=== PATIENT | female | born 1955 | race Caucasian/White ===

== ENCOUNTER 2016-10-15 14:26 | Inpatient (IN) | payer OTHER ==
[~2016-10-15] VITALS: Ht 166.4 cm; Wt 88.4 kg
--- NOTE | ~2016-10-15 | CON ---
PATIENT'S NAME: PAT LEWIS [facility] AGE: 61 Y [address] ROOM: [place] [id number] LOCATION: GPCU ADMIT DATE: 10/15/2016 Consultation DISCHARGE DATE: FAMILY PHYSICIAN: PHYSICIAN, UNKNOWN ATTENDING PHYSICIAN: WHITNEY DELUCA DATE OF CONSULTATION: 10/17/2016 REFERRING PHYSICIAN: Emre Hoffman MD REASON FOR CONSULT: Abnormal liver function tests. HISTORY OF PRESENT ILLNESS: Pat Lewis is a very pleasant 61-year-old female, who was admitted yesterday with history of a substernal chest pain, abdominal pain, and was found to have a borderline elevated ALT on admission. She underwent a cardiology consult, workup, echocardiogram as well as CT angio, which was negative. Her liver function tests shot up this morning with a total bilirubin up to 3.5, ALT 506, AST 222. An abdominal ultrasound was obtained, which revealed a common bile duct of 6 mm without any gallbladder stones and no evidence of cholecystitis and no pancreatic abnormality. I was asked to see her in regard to elevated liver function tests in association with underlying abdominal pain and constipation. The patient denies any previous similar episodes and is presently complaining of abdominal discomfort and "excessive burping." She was allowed to eat, which caused her pain to worsen this afternoon. PAST MEDICAL HISTORY: Otherwise unremarkable. Does have ongoing problem with acid reflux but does not take any medications. PAST SURGICAL HISTORY: None. MEDICATIONS: On admission, none. MAR is reviewed. FAMILY HISTORY: "Heart disease." REVIEW OF SYSTEMS: A 10-point review of system otherwise negative. PHYSICAL EXAMINATION: PATIENT'S NAME: PAT LEWIS [facility] AGE: 61 Y [address] ROOM: [id number] [place] [id number] LOCATION: GPCU ADMIT DATE: 10/15/2016 Consultation DISCHARGE DATE: FAMILY PHYSICIAN: PHYSICIAN, UNKNOWN ATTENDING PHYSICIAN: WHITNEY DELUCA GENERAL: A middle-aged female, in mild distress in view of ongoing burping and abdominal discomfort. HEENT: Atraumatic, normocephalic. Pupils round and reactive. Nonicteric sclerae. NECK: Supple. No palpable nodes. CHEST: Clear to auscultation. HEART: S1, S2 normal. ABDOMEN: Soft and nondistended with right upper quadrant tenderness. No rebound. Bowel sounds are present. EXTREMITIES: No edema. Pulses palpable. NEUROLOGIC: Awake, alert, and appropriate without any focal deficits. LABORATORY DATA: CBC reveals a white cell count of 7.2. Chemistry panel showing total bilirubin of 3.5, AST 222, ALT 506. Abdominal ultrasound showing no biliary dilatation. Common bile duct measured at 6 mm. No focal liver lesions and no gallstones. Normal ultrasound appearance of the pancreas without any enlargement. ASSESSMENT AND PLAN: A 61-year-old female presenting with abdominal/substernal chest pain with cardiopulmonary workup being negative, abdominal ultrasound is negative, however, the findings strongly suggest a biliary etiology in association with underlying constipation. She also has symptoms of acid reflux with no previous upper or lower GI endoscopic evaluation. We will trend her liver panel, and obtain an MRCP to look at the gallbladder and bile ducts with further evaluation, which may require an ERCP as well as consideration of upper and lower GI endoscopy in view of symptoms noted above. Further recommendations pending this evaluation. Thank you for this consult. MER FREEMAN MD AM/mimi /[id number] d: 10/18/16 0032 t: 10/18/16 0811, CONSULTATION REPORT
--- NOTE | ~2016-10-15 | DS ---
PATIENT'S NAME: CHAPARRO LEWIS [facility] AGE: 61 Y [address] ROOM: [id number] [place], [place] [address] LOCATION: GPCU ADMIT DATE: 10/15/2016 Discharge Summary DISCHARGE DATE: 10/21/2016 FAMILY PHYSICIAN: Nikos White MD ATTENDING PHYSICIAN: Amadeo Sotelo FINAL DIAGNOSES: 1. Chest pain, noncardiac. 2. Abdominal pain secondary to acute diverticulitis, left colon. 3. Elevated liver function tests, etiology determined. HOSPITAL COURSE: This 61-year-old female was admitted to the hospitalist service for the above. I was asked to see her the last couple days of her admission. When I saw her a couple days prior to admission, she had just gone on IV anesthesia for colonoscopy which revealed pus coming from the diverticulum on the left colon per Dr. Trinidad, manager winter. At that time, after her endoscopy of the colon, it was elected to place her on IV Cipro and IV Flagyl. I felt because of the type of infection and the amount of infection, it was appropriate to keep her on IV antibiotics at that time. Her liver functions have been the other issue here and although her cardiac status has been ruled out as a cause of her pain, her liver function elevation is concerning enough that the manager winter wanted to have me see her back on Monday and recheck her liver function tests, and if these do not continue to resolve, she will need further GI evaluation either at [facility], nor the [facility]. The patient understands this. On the morning, when I see her dismissal 10/21, she has tolerated the IV Cipro and IV Flagyl well. She has been told to proceed to take these as an outpatient and not drink alcohol. She has been told to see me back in the office this coming Monday. At that time, we will check liver function tests, obtain consultation with the manager winter as needed. At home, she can have diet as tolerated, activity as tolerated. I gave her a note to be out-of- work for a week. NIKOS WHITE MD RACE ENGINE BUILDER/modl /[id number] d: 10/22/16 0121 t: 10/24/16 1832, DISCHARGE SUMMARY
--- NOTE | ~2016-10-15 | ER ---
PATIENT'S NAME: CHAPARRO LEWIS [facility] AGE: 61 Y [address] ROOM: [place] [address] LOCATION: GPCU ADMIT DATE: 10/15/2016 ER/Outpatient Report DISCHARGE DATE: FAMILY PHYSICIAN: PHYSICIAN, UNKNOWN ATTENDING PHYSICIAN: WHITNEY DELUCA CHIEF COMPLAINT: Chest pain. HISTORY OF PRESENT ILLNESS: The patient arrives by ambulance from [place]. She was at her work today at a [employer] when she had an episode of crushing sternal and substernal chest pain associated with diaphoresis that was self-limited. She received aspirin and nitroglycerin. The nitroglycerin did not help, but she is almost completely asymptomatic by arrival here in the emergency department. She has been having these episodes off and on for the last several weeks. Typically, they start in the mid abdomen and radiate upwards and are more consistent with some reflux disease. She does not have a primary care physician. She does not go to doctor. She does not take medicine, but thinks she may have high blood pressure. She has extensive family cardiac history, but denies being a smoker. PAST MEDICAL HISTORY: Documented on the record and reviewed by me. SOCIAL HISTORY: Documented on the record and reviewed by me. MEDICATIONS: Documented on the record and reviewed by me. ALLERGIES: DOCUMENTED ON THE RECORD AND REVIEWED BY ME. REVIEW OF SYSTEMS: All systems were reviewed and negative except as noted in the HPI. PHYSICAL EXAMINATION: VITAL SIGNS: Blood pressure 174/82, pulse 61, respiratory rate 16, temperature 97.7, and SpO2 is 96% on room air. GENERAL: Age-appropriate female, in no obvious pain or distress, resting comfortably on the exam table. NEUROLOGIC: Awake and alert. GCS is 15. No focal deficits. HEENT: Normocephalic, atraumatic. Eyes are PERRL. Oropharynx is clear. NECK: Supple. Trachea is midline. PATIENT'S NAME: CHAPARRO LEWIS [facility] AGE: 61 Y [address] ROOM: [address] [address] LOCATION: GPCU ADMIT DATE: 10/15/2016 ER/Outpatient Report DISCHARGE DATE: FAMILY PHYSICIAN: PHYSICIAN, UNKNOWN ATTENDING PHYSICIAN: WHITNEY DELUCA CHEST/HEART: Regular rate and rhythm with no murmurs. LUNGS: Clear to auscultation bilaterally with no rhonchi, wheezes, or rales. ABDOMEN: Soft, nontender, nondistended. Bowel sounds are present throughout. No masses or megaly appreciated. BACK: Nontender to palpation. No CVA tenderness. EXTREMITIES: Warm and well perfused. No evidence of DVT. No erythema. No edema. SKIN: Warm, dry, and intact. No diaphoresis at this time. LABORATORY DATA AND X-RAYS: Chest x-ray without abnormality per my read. Chest CT with no abnormalities according to Radiology. Labs: WBC 7.2, hemoglobin 13.0, platelets 164. INR is 1.0. Sodium 144, potassium 4.0, chloride 110, CO2 is 26, BUN is 14, creatinine is 0.8, GFR is greater than 60. LFTs grossly unremarkable other than an AST of 101, ALT of 70. Magnesium 2.2. CPK is 130, CK-MB is 2.5, troponin is below threshold. D-dimer 0.55. Repeat cardiac enzymes: CPK 151, CK-MB 2.3, troponin I remains below threshold. EKG: Initial reveals sinus rhythm, ventricular rate of 60 with QTc of 54, otherwise normal intervals and axis. Some artifact is appreciated in the inferior leads with [id number] variation, but no obvious signs of ischemia. No ST-segment elevation or depression. Repeat EKG is unchanged compared to initial with no other available comparisons. IMPRESSION: 1. Chest pain, not otherwise specified, possible hypertensive urgency 2. Uncontrolled hypertension. 3. Elevated AST with undetermined etiology. EMERGENCY DEPARTMENT COURSE: The patient was evaluated as noted above. She was found to be asymptomatic. PE was considered in the differential based on her presentation. D-dimer was elevated as the patient was low risk by [place] but not PERC negative based on age. At that time, a CT chest was obtained. She was pretreated with Benadryl to prevent allergy as she supposedly has a reaction to strawberries with hives and Radiology was concerned about that. She had no adverse reactions. Over the course of time in the emergency department, her blood pressure began to trend up significantly. Ultimately, I believe that she will need to be admitted for evaluation and treatment of her recurrent chest pain in the setting of what appears to be uncontrolled hypertension and possible hypertensive urgency. Dr. Mir received hand off at 1800 hours and will help facilitate admission. Initially, I was planning on discharging her, but with her up trending blood pressures, I do not think that it would be safe. Please see his dictation for completion of encounter. PATIENT'S NAME: CHAPARRO LEWIS [facility] AGE: 61 Y [address] ROOM: [place] [address] [facility]ATION[facility] ADMIT DATE: 10/15/2016 ER/Outpatient Report DISCHARGE DATE: FAMILY PHYSICIAN: PHYSICIAN, UNKNOWN ATTENDING PHYSICIAN: WHITNEY DELUCA MD YIN PHILLIP/mimi /[id number] d: 10/16/1607 t: 10/18/16 0633, OUTPATIENT REPORT
--- NOTE | ~2016-10-15 | ECHO ---
Transthoracic Echocardiography Report (TTE) Demographics Patient Name CHAPARRO LEWIS Date of Study 10/16/2016 Patient Number [id number] Visit Number [id number] Date of 1955 Room Number G6325 Accession Number [id number] Gender Female Age 61 year(s) Referring Ashleigh Boswell MD Railway Yard Assistant Kacie Neal RVT Physician Physician Interpreting Eli Gregorio Trade Mark Examiner Physician Supervising Ordering Physician Ashleigh Boswell MD, MD/MLP Nurse Stress Radiologist Physician Conclusions Contractility Score Summary Normal Left Ventricular contractility was noted. Summary Normal LV/RV size and systolic function. The estimated left ventricular ejection fraction is 55-60%. Mild concentric left ventricular hypertrophy. Diastolic assessment reveals normal LV relaxation. No significant valvular abnormalities. Procedure Type of Study TTE procedure:2D Echocardiogram, M-Mode, Doppler , Color Doppler. Procedure Date Date: 10/16/2016 Start: 04:10 PM Study Location: Inpatient Portable Technical Quality: Adequate visualization Indications:Chest pain. Appropriate Use Criteria: 9 Patient Status: Routine HR: 52 bpm BP: 154/72 mmHg M-Mode/2D Measurements LV Diastolic Dimension: 4.63 cm LV Systolic Dimension: 2.72 cm LV Septum Diastolic: 1.45 cm LV PW Diastolic: 1.3 cm AO Root Dimension: 2.4 cm Cardiac Output: 2.79 l/min AV Cusp Separation: 1.9 cm RV Diastolic Dimension: 3.43 cm LVOT: 2 cm LVOT VTI: 17.1 cm RV Base: 2.46 cm LV Stroke volume: 53.69 ml RV Length: 6.23 cm TAPSE: 2.38 cm TDI-S': 18.4 cm/s Doppler Measurements AV Peak Velocity: 1.97 m/s MV Peak E-Wave: 1.04 m/s AV Peak Gradient: 15.52 mmHg MV Peak A-Wave: 0.74 m/s AV Mean Gradient: 7 mmHg MV E/A Ratio: 1.41 LVOT Peak Velocity: 0.71 m/s MV P1/2t: 62 msec PV Peak Velocity: 0.97 m/s E' Septal Velocity: 0.07 m/s PV Peak Gradient: 3.74 mmHg E' Lateral Velocity: 0.12 m/s A' Septal Velocity: 0.16 m/s A' Lateral Velocity: 0.14 m/s Findings Left Ventricle Mild concentric left ventricular hypertrophy. Diastolic assessment reveals normal relaxation. Right Ventricle Normal right ventricle structure and function. Left Atrium Normal left atrial size. Right Atrium IVC measures 1.69 cm with inspiratory collapse. Mitral Valve Trivial mitral regurgitation by color Doppler. Aortic Valve The aortic valve is mildly sclerotic. Tricuspid Valve Normal tricuspid valve structure and function. Pulmonic Valve Normal pulmonic valve structure and function. Pericardial Effusion No evidence of pericardial effusion. Miscellaneous Visualized portions of the aortic root and ascending aorta appear normal in size. Pleural Effusion No evidence of pleural effusion. Contractility Score LV regional wall motion:(0-Non visualized 1-Normal 2-Hypokinesis 3-Akinesis 4-Dyskinesis 5-Aneurysm) Signature dtt: TERI HARKINS dtd: 10/16/16 5210 Physician Self Edit
--- NOTE | ~2016-10-15 | CON ---
PATIENT'S NAME: CHAPARRO LEWIS [facility] AGE: 61 Y [address] ROOM: [id number] [place] [address] LOCATION: GPCU ADMIT DATE: 10/15/2016 Consultation DISCHARGE DATE: FAMILY PHYSICIAN: PHYSICIAN, UNKNOWN ATTENDING PHYSICIAN: WIHTNEY DELUCA DATE OF CONSULTATION: 10/16/2016 REFERRING PHYSICIAN: Emre Hoffman MD REASON FOR CONSULT: Chest pain. HISTORY OF PRESENTING ILLNESS: The patient is a very pleasant, 61-year-old female, who arrived to the emergency room via ambulance from [place]. 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 She does not report that she has any chest pain, tightness, pressure, heaviness, jaw pain, arm pain with exertion in the recent past. She also reports the nitroglycerin did not help. She did receive Gas-X and that helped a little bit and she also got the GI cocktail and says that has helped her. When she came in, her pain was about 7 on the pain scale, and this morning she is still continues to have abdominal pain and it is about 5 on pain scale. She does not have a primary care doctor and does not get her labs checked. She does not take any medications, but she does report that she thinks she has high blood pressure in the past. She also has extensive family history of premature coronary artery disease. She does not smoke, no illicit drug abuse. She does not have any PND, orthopnea, lower extremity edema. She denies any neurological symptoms. She does not have any recent skin rashes. No travel outside the country. No cough or sputum production. Review of systems: 10 point review of systems discussed with patient and pertinent. PAST MEDICAL HISTORY: Questionable hypertension. 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 She also reports no history of alcohol or illicit drug abuse or tobacco abuse. She chews tobacco 1 can a week. MEDICATIONS: Please see MAR. ALLERGIES: IODINE. PATIENT'S NAME: CHAPARRO LEWIS [facility] AGE: 61 Y [address] ROOM: [address] [address] LOCATION: GPCU ADMIT DATE: 10/15/2016 Consultation DISCHARGE DATE: FAMILY PHYSICIAN: PHYSICIAN, UNKNOWN ATTENDING PHYSICIAN: WHITNEY DELUCA MEDICATIONS: None. PAST SURGICAL HISTORY: None reported by the patient. FAMILY HISTORY: Positive for premature coronary artery disease in her father, who has had MIs starting at the age of 40. PHYSICAL EXAMINATION: VITAL SIGNS: Afebrile, pulse is 52 and regular, respirations 14, blood pressure 152/71, and saturations 96% on room air. GENERAL: The patient is alert and oriented to time, place, and person. She appears to be in mild distress due to her abdominal pain. She answers questions appropriately. HEENT: Head is normocephalic, atraumatic. Extraocular muscles are intact. Mucous membranes moist. NECK: Supple. HEART: S1 and S2. Regular rate and rhythm. Distant heart sounds. LUNGS: Clear to auscultation bilaterally. ABDOMEN: Soft. Tender to palpation. Nondistended. Obese. Bowel sounds are present. No rebound or guarding. EXTREMITIES: No lower extremity edema. NEUROLOGIC: Grossly intact. Able to move all extremities against gravity. LABORATORY DATA: Her sodium is 143, potassium 3.9, chloride 109, CO2 24, glucose 103, BUN 10, creatinine 0.9, total bilirubin 0.6, alkaline phosphatase 76. AST 101, ALT 70. GFR greater than 60. Magnesium 2.2. Total cholesterol 168, triglycerides 101, HDL 53, VLDL 20, LDL is 95. CPK x3 within normal limits less than 155, CK-MB within normal limits less than 2.5. Troponin 3 sets less than 0.04. H and H are 13 and 37.9. Platelets are 164. She had a CAT scan PE protocol, yesterday and basically there is no evidence of any PE, no vascular congestion or acute parenchymal infiltrate. She does have a small sliding hiatal hernia on the CAT scan. EKG normal sinus rhythm without any ST changes suggestive of ischemia or injury. IMPRESSION AND PLAN: 1. Hypertensive urgency. 2. Elevated AST along with abdominal pain. 3. Atypical chest discomfort from abdominal pain as well as gas that feels PATIENT'S NAME: JOSHUA CHAPARRO L [facility] AGE: 61 Y [address] ROOM: [address] [place], [place] [address] [facility] ADMIT DATE: 10/15/2016 Consultation DISCHARGE DATE: FAMILY PHYSICIAN: PHYSICIAN, UNKNOWN ATTENDING PHYSICIAN: WHITNEY DELUCA like it is pushing her belly up into her chest and she has some chest discomfort for that, no clear-cut exertional symptoms, no symptoms prior to Monday this admission. 4. Sinus bradycardia, since beta-errol has been started here. The patient was admitted with hypertensive urgency in setting of abdominal pain as well as elevated AST. Her chest discomfort is very atypical and this seems to be coming from her abdomen pushing into her chest. Serial ECGs as well as 3 sets of cardiac isoenzymes are essentially unremarkable. It is very unlikely that she is having acute coronary syndrome or angina equivalent, given the findings of serial cardiac workup so far. In any case, given her hypertensive urgency poorly controlled blood pressure, it is very important to check an echocardiogram to see if she has any hypertensive heart disease on echo to evaluate her LV systolic function, left atrial size, and diastolic function. I will discontinue the beta-errol given her sinus bradycardia and I will start amlodipine 2.5 mg daily 1st dose today. I will also increase her Vasotec to 10 mg p.o. daily. Since she has cardiovascular risk factors, it is reasonable for her to be on aspirin for primary prophylaxis. We will decrease the dose to 81 mg p.o. daily. Since her lipid profile is fairly adequate, I do not think we need to start a statin at this time. Her [place] risk score is low and only 2.8%. I will discontinue the Lipitor, reiterated the importance of cardiac diet and exercise and lifestyle modification. Also, reiterated the importance of continuing follow up and getting blood pressure medications and making sure it is well controlled to avoid long-term cardiovascular effects. If there is anything abnormal on the echocardiogram, we will then proceed with stress test. Otherwise, I think at this time we need to just control her cardiovascular risk factors very well and lifestyle modification. Thank you very much, Dr. Deluca for allowing us to participate in the care of Mrs. Lewis. We will continue to follow her. MD ZULAY DIXON/modl /[id number] d: 10/16/16 1107 t: 10/17/16 0913, CONSULTATION REPORT
--- NOTE | ~2016-10-15 | ER ---
PATIENT'S NAME: CHAPARRO LEWIS [facility] AGE: 61 Y [address] ROOM: [place] [address] LOCATION: GPCU ADMIT DATE: 10/15/2016 ER/Outpatient Report DISCHARGE DATE: 10/21/2016 FAMILY PHYSICIAN: Nikos White MD ATTENDING PHYSICIAN: Nikos White Time of Arrival: 1426 hours. Time of Evaluation: The patient was seen at 1440 hours. CHIEF COMPLAINT: This is a 61-year-old female, previously reasonably healthy. She is in with complaint of epigastric pain and diaphoresis. HISTORY OF PRESENT ILLNESS: At about 1230 hours this afternoon, she developed bloating and discomfort in her epigastrium that became progressively more severe and she states that she burped several times with partial relief, and the discomfort continued to worsen. She became diaphoretic and so she presented herself here. PAST MEDICAL HISTORY: She denies any chronic medical problems. MEDICATIONS: None. REVIEW OF SYSTEMS: Otherwise, negative. SOCIAL HISTORY: She is a nonsmoker. She does chew tobacco. She denies alcohol. FAMILY HISTORY: Significant for coronary artery disease in both of her parents. REVIEW OF SYSTEMS: She denies any other recent illnesses. All other systems are negative. PHYSICAL EXAMINATION: GENERAL: An alert, cooperative female. Moderately overweight, in no acute distress. VITAL SIGNS: Stable. SKIN: Warm and damp. Color is pale. HEAD, EARS, EYES, NOSE, THROAT: Normal. NECK: Supple. HEART: Normal. PATIENT'S NAME: CHAPARRO LEWIS [facility] AGE: 61 Y [address] ROOM: [place] [address] LOCATION: GPCU ADMIT DATE: 10/15/2016 ER/Outpatient Report DISCHARGE DATE: 10/21/2016 FAMILY PHYSICIAN: Nikos White MD ATTENDING PHYSICIAN: Nikos White LUNGS: Normal. ABDOMEN: Soft. She has minimal epigastric tenderness. No guarding or rebound tenderness. EXTREMITIES: Normal. NEUROLOGIC: Normal. LABORATORY DATA: EKG revealed sinus rhythm with no acute ST or T-wave changes. Cardiac enzymes were negative. Chest x-ray was negative. EMERGENCY DEPARTMENT COURSE: The patient was given sublingual nitroglycerin with improvement in her discomfort, and the hospitalist was called and agreed to admit the patient. ASSESSMENT: Epigastric pain/chest pain. PLAN: Admit for serial cardiac enzymes and cardiac stress test. KAIN MAGAÑA MD JDB/modl /[id number] P d: 11/14/16 1518 t: 12/13/16 1021, OUTPATIENT REPORT
--- NOTE | ~2016-10-15 | HP ---
PATIENT'S NAME: CHAPARRO LEWIS [facility] AGE: 61 Y [address] ROOM: [place] [address] LOCATION: GPCU ADMIT DATE: 10/15/2016 History & Physical DISCHARGE DATE: FAMILY PHYSICIAN: PHYSICIAN, UNKNOWN ATTENDING PHYSICIAN: WHITNEY DELUCA DATE OF SERVICE: PRIMARY CARE PHYSICIAN: None. CHIEF COMPLAINT: Epigastric pain. HISTORY OF PRESENT ILLNESS: This is a 61-year-old female with a family history of heart disease. The patient states that she started having bloating in her abdomen sometime early this afternoon. She then started developing epigastric pain. The patient rated her pain as 6/10 in intensity. She presented to the ER with epigastric pain at that point of time. She states that she was also diaphoretic. The pain radiates to her back. She received a dose of aspirin and nitroglycerin in the ER, and her pain resolved. Currently, she rates her pain as 3/10 intensity. She denies any lightheadedness. She was diaphoretic during this episode. Denies any abdominal pain currently. Denies back pain or knee pain issues. Denies any other complaints at this point in time. REVIEW OF SYSTEMS: A 10-point review of systems was done and was otherwise negative, except as mentioned above. PAST MEDICAL HISTORY: None reported. PAST SURGICAL HISTORY: None reported. ALLERGIES: IODINE. HOME MEDICATIONS: None. SOCIAL HISTORY: Denies smoking or alcohol use. PATIENT'S NAME: CHAPARRO LEWIS [facility] AGE: 61 Y [address] ROOM: [place] [address] LOCATION: GPCU ADMIT DATE: 10/15/2016 History & Physical DISCHARGE DATE: FAMILY PHYSICIAN: PHYSICIAN, UNKNOWN ATTENDING PHYSICIAN: WHITNEY DELUCA FAMILY HISTORY: Significant for heart disease in mother and father. PHYSICAL EXAMINATION: VITAL SIGNS: Temperature 97.7; pulse 65, regular; respirations 16; blood pressure 174/82; saturation 96% on room air. GENERAL: The patient is alert and oriented x3. Answers all questions appropriately. No acute distress. HEENT: Head: Normocephalic, atraumatic. Pupils are equal, round, and reactive to light. Extraocular muscles are intact. Nares clear. Throat clear. Mucous membranes moist. NECK: Supple. No nuchal rigidity. HEART: Regular rate and rhythm. LUNGS: Clear to auscultation bilaterally. ABDOMEN: Soft, nontender, and nondistended. Bowel sounds are present. EXTREMITIES: No clubbing, cyanosis, or edema. VASCULAR: Pulses are 2+ distally bilaterally. NEUROLOGIC: The patient is alert and oriented x3. Follows all commands. Moves all extremities. Cranial nerves 2 through 12 grossly intact. Deep tendon reflexes are 2+/4. Sensation intact in bilateral upper and lower extremities. DIAGNOSTIC STUDIES: CPK 151 and 130. Troponin I less than 0.04 x2. CBC showed a white count of 7.2, hemoglobin 13.2, hematocrit 37.9, platelets 164. CMP showed sodium 144, potassium 4.0, chloride 110, bicarb 26, BUN 14, creatinine 0.8, glucose 117, calcium 8.6, total protein 6.8, albumin 3.9, AST 101, ALT 70, alkaline phosphatase 76, total bilirubin 0.6, magnesium 2.2, anion gap 12.0, globulin 2.9, GFR more than 60, PT 10.2, INR 1.0, PTT 27, CK- MB 2.5 and subsequently 2.3. D-dimer 0.55. CT chest PE protocol was done and it showed no PE. No vascular congestion or acute parenchymal infiltrate noted. Small sliding hiatal hernia was detected. Chest x-ray was done in the ER and showed no vascular congestion or acute parenchymal infiltrate. Metallic hardware at the left clavicle was noted. EKG done in the ER showed sinus rhythm with no acute ST changes and rate of 64 beats per minute. QT interval prolonged with QTc corrected 451 milliseconds. ASSESSMENT AND PLAN: A 61-year-old female presenting with chest pain to rule out acute coronary syndrome and hypertensive urgency. PATIENT'S NAME: CHAPARRO LEWIS [facility] AGE: 61 Y [address] ROOM: [place] [address] [facility] ADMIT DATE: 10/15/2016 History & Physical DISCHARGE DATE: FAMILY PHYSICIAN: PHYSICIAN, UNKNOWN ATTENDING PHYSICIAN: WHITNEY DELUCA 1. Chest pain. We will rule out acute coronary syndrome. The patient will be placed on the ACS pathway. We will trend cardiac enzymes. We will utilize nitroglycerin drip p.r.n. for chest pain. Her enzymes are normal. Cardiology consult will be obtained for the patient. She will undergo an echo in the morning. Further recommendations per Cardiology. 2. Hypertensive urgency. The patient's blood pressure is elevated at this point of time. She received a dose of amlodipine in the ER. I will utilize p.r.n. IV hydralazine for blood pressure control at this point in time. 3. Deep vein thrombosis prophylaxis, heparin. 4. Code status: Full code. Discussed with the patient at the time of admission. WHITNEY DELUCA MD MT/mimi /[id number] D: 212 T: 620 HISTORY & PHYSICAL
[2016-10-15 15:19] LABS: HEMATOCRIT 37.9 % (33.0-46.0); MCH 30.8 pg (27.0-34.0); MCHC 34.3 gm/dL (32.0-36.5); MCV 89.8 fl (83.0-98.0); MPV 10.8 fl (9.4-12.4); PLATELET COUNT 164 K/uL (150-450); RBC 4.22 M/uL (3.50-5.50); RDW-CV 12.7 % (11.9-14.6); WBC 7.2 K/uL (4.0-11.0)
[2016-10-15 15:28] LABS: PROTIME 10.2 SECONDS (9.6-11.1); PTT 27 SECONDS (25-32)
[2016-10-15 15:38] LABS: ALBUMIN 3.9 gm/dL (3.5-5.0); ALK PHOS 76 IU/L (33-138); ALT 70 IU/L (12-78); AST 101 IU/L (10-40); BLOOD UREA NITROGEN 14 mg/dL (6-24); CALCIUM 8.6 mg/dL (8.5-10.5); CHLORIDE 110 mMol/L (96-110); CO2 26 mMol/L (22-32); CPK 130 IU/L (21-215); CREATININE 0.8 mg/dL (0.5-1.1); ESTIMATED GFR (MDRD EQUATION) > 60; MAGNESIUM 2.2 mg/dL (1.3-2.6); SODIUM 144 mMol/L (135-145); TOTAL BILIRUBIN 0.6 mg/dL (0.0-1.5); TOTAL PROTEIN 6.8 g/dL (6.0-8.4)
[2016-10-15 15:54] LABS: ABSOLUTE NEUTROPHIL CT (ANC) 6.1 K/uL (1.8-7.8); BANDED NEUTROPHIL # 0.6 K/uL (0.0-0.1); BANDED NEUTROPHILS % 8 %; LYMPHOCYTE # 0.6 K/uL (0.8-4.0); LYMPHOCYTE % 9 %; MONOCYTE # 0.4 K/uL (0.0-1.0); SEGMENTED NEUTROPHIL # 5.5 K/uL (1.8-7.8); SEGMENTED NEUTROPHIL % 77 %
[2016-10-15 16:49] LABS: CPK 151 IU/L (21-215)
--- NOTE | 2016-10-15 21:54 | NUR ---
Patient is a 61yo female admitted to PCU for chest pain. Patient presented to ER with chest/abdominal pain which she said was a 10/10. EKG, cardiac enzymes were all negative. GI cocktail was given in ER which did not have much effect while she was down there, but her pain is now a 3/10, only in her abdomen and patient states it feels as though her stomach is stretched, like someone filled a balloon with air in her belly. Patient no longer has any chest pain. Initiated fluids at 70ml/hr. Nitro not initiated due to patient's lack of chest pain. Several antihypertensive medications given. Vitals upon arrival to PCU were 97.8, 194/91-131, 62bpm, 96% on room air, and 16 respirations. Patient is up stand-by assist. No significant past history, but patient states she does not go to the doctor. Stress test planned for morning. Patient NPO at midnight.
[2016-10-15 22:42] LABS: CPK 132 IU/L (21-215)
--- NOTE | 2016-10-16 04:44 | NUR ---
Significant Event: Patient's abdominal pain has not gone away tonight. Tylenol given at 2355 which only relieved the pain a little bit before it came back. Gas-x given at 0415, so far no relief. NS at 70ml/hr. Order for nitro gtt if chest pain returns. NPO since midnight. Follow up: Cardiology consult
[2016-10-16 05:18] LABS: CPK 155 IU/L (21-215)
[2016-10-16 05:28] LABS: ANION GAP 13.9 (10.0-19.0); BLOOD UREA NITROGEN 10 mg/dL (6-24); CALCIUM 8.6 mg/dL (8.5-10.5); CHLORIDE 109 mMol/L (96-110); CO2 24 mMol/L (22-32); CREATININE 0.9 mg/dL (0.5-1.1); ESTIMATED GFR (MDRD EQUATION) > 60; POTASSIUM 3.9 mMol/L (3.7-5.1); SODIUM 143 mMol/L (135-145)
[2016-10-16 10:57] LABS: CPK 141 IU/L (21-215)
--- NOTE | 2016-10-16 16:09 | NUR ---
Significant Event: A/O. VSS on RA. Abdominal Pain continues to be 4-7/10. Ultram and GI cocktail provided relief. Continues to belch frequently. No c/o CP. Cardiac enzymes remain neg. ABD US negative. KUB reveal stool in bowel and free air in stomach. Dulcolax and colace given. Patient/family upset that she has no answers. Family very anxious. Echo being completed at this time. Follow up:
--- NOTE | 2016-10-17 04:29 | NUR ---
Significant Event: Patient A/Ox3. VSS on RA. Up independently in room. Patient has been completely cleared by cardiology. Her pain is also much lower than the previous night. Colace given BID. Family requested a dulcolax suppository. Patient did have one small bowel movement after suppository, but stated it made her feel crampy and didn't do much. Follow up: Home today?
[2016-10-17 09:49] LABS: BLOOD URINE NEGATIVE /UL (NEGATIVE); COLOR URINE YELLOW (YELLOW); GLUCOSE URINE NEGATIVE (NEGATIVE); KETONE URINE NEGATIVE (NEGATIVE); LEUKOCYTES URINE 25 /UL (NEGATIVE); NITRITE URINE NEGATIVE (NEGATIVE); PROTEIN URINE NEGATIVE (NEGATIVE); TURBIDITY URINE CLEAR (CLEAR); UROBILINOGEN URINE 4 mg/dL (NORMAL)
[2016-10-17 09:55] LABS: BACTERIA URINE RARE (NEGATIVE); RBC URINE NEGATIVE #/HPF (NEGATIVE)
[2016-10-17] MEDS ORDERED: NORVASC2.5 MG PO (12:31)
[2016-10-17] MEDS ORDERED: COLACE100 MG PO (12:32)
[2016-10-17] MEDS ORDERED: VASOTEC10 MG PO (12:33)
[2016-10-17 13:27] LABS: ALBUMIN 3.5 gm/dL (3.5-5.0); ANION GAP 14.9 (10.0-19.0); CALCIUM 8.1 mg/dL (8.5-10.5); POTASSIUM 3.9 mMol/L (3.7-5.1); TOTAL PROTEIN 6.2 g/dL (6.0-8.4)
[2016-10-17 13:30] LABS: TOTAL BILIRUBIN 3.5 mg/dL (0.0-1.5)
[2016-10-17 15:44] LABS: BASOPHIL # 0.1 K/uL (0.0-0.2); BASOPHIL % 0.7 %; EOSINOPHIL # 0.1 K/uL (0.0-0.5); EOSINOPHIL % 1.1 %; IMMATURE GRANULOCYTE # 0.1 K/uL (0.0-0.3); IMMATURE GRANULOCYTE % 0.8 %; LYMPHOCYTE # 0.5 K/uL (0.8-4.0); LYMPHOCYTE % 6.5 %; MONOCYTE # 0.3 K/uL (0.0-1.0); MONOCYTE % 4.6 %; NEUTROPHIL # (ANC) 6.2 K/uL (1.8-7.8); NEUTROPHIL % 86.3 %; NRBC % 0 /100WBC (0-0.00)
--- NOTE | 2016-10-17 18:38 | NUR ---
Significant Event: A/O X3. UP AD NANDO. RIGHT FA IV WITH NS @ 70 ML/HR. PLAN FOR MRCP IN AM. CLEAR LIQUID DIET. NPO AFTER MIDNIGHT. C/O BELCHING AND BLOATING. BM X1 THIS AM. Follow up:
--- NOTE | 2016-10-18 04:29 | NUR ---
A/O. HR 50-60s. SBP 150-170s. ROOM AIR. TMAX 99.2. C/O BLOATING TUMS AND GASX GIVEN. ULTRAM GIVENx1 FOR ABD PAIN. AD NANDO IN ROOM. NPO SINCE MIDNIGHT FOR ERCP TODAY. NS RUNNING 70ML/HR. NO BM.
[2016-10-18 06:18] LABS: ALBUMIN 3.4 gm/dL (3.5-5.0); TOTAL PROTEIN 6.4 g/dL (6.0-8.4)
[2016-10-18 06:19] LABS: TOTAL BILIRUBIN 1.8 mg/dL (0.0-1.5)
--- NOTE | 2016-10-18 13:02 | NUR ---
Introduced self and role of care management to patient. She lives in [place] by herself. She states that she is able to do all her own ADL's. She has family that would assist if needed. She plans on returning home on discharge. She denies any needs at this time. Will continue to follow.
--- NOTE | 2016-10-18 17:10 | NUR ---
Significant Event: Patient A/O x 3. Up independently. VSS on RA. SBP 150-160's. Patient states she was feeling much better until she attempted to eat some beef broth and jello. Then started belching and felt bloated again. Started bowel prep and patient will have EGD and colonoscopy tomorrow per family request. Next part of bowel prep at 0400. RFA PIV with NS infusing at 70 ml/hr. Denies any pain or needs throughout the day. Occasional RLQ tenderness. Follow up: Continue as per plan of care. NPO after midnight except for meds for EGD/Colonoscopy tomorrow.
[2016-10-19 04:24] LABS: BASOPHIL # 0.1 K/uL (0.0-0.2); BASOPHIL % 1.9 %; EOSINOPHIL # 0.1 K/uL (0.0-0.5); EOSINOPHIL % 2.5 %; HEMATOCRIT 35.7 % (33.0-46.0); HEMOGLOBIN 12.1 g/dL (10.0-15.0); IMMATURE GRANULOCYTE % 0.6 %; LYMPHOCYTE # 0.8 K/uL (0.8-4.0); LYMPHOCYTE % 23.5 %; MCH 30.7 pg (27.0-34.0); MCHC 33.9 gm/dL (32.0-36.5); MCV 90.6 fl (83.0-98.0); MONOCYTE # 0.3 K/uL (0.0-1.0); MONOCYTE % 8.7 %; MPV 11.1 fl (9.4-12.4); NEUTROPHIL % 62.8 %; NRBC % 0 /100WBC (0-0.00); PLATELET COUNT 150 K/uL (150-450); RBC 3.94 M/uL (3.50-5.50); RDW-CV 12.6 % (11.9-14.6); WBC 3.2 K/uL (4.0-11.0)
[2016-10-19 04:42] LABS: ALBUMIN 3.5 gm/dL (3.5-5.0); ALK PHOS 148 IU/L (33-138); ANION GAP 12.7 (10.0-19.0); AST 139 IU/L (10-40); BLOOD UREA NITROGEN 8 mg/dL (6-24); CALCIUM 8.3 mg/dL (8.5-10.5); CHLORIDE 111 mMol/L (96-110); CO2 25 mMol/L (22-32); CREATININE 0.7 mg/dL (0.5-1.1); ESTIMATED GFR (MDRD EQUATION) > 60; POTASSIUM 3.7 mMol/L (3.7-5.1); SODIUM 145 mMol/L (135-145); TOTAL PROTEIN 6.4 g/dL (6.0-8.4)
[2016-10-19 04:45] LABS: ALT 336 IU/L (12-78); TOTAL BILIRUBIN 1.3 mg/dL (0.0-1.5)
--- NOTE | 2016-10-19 06:10 | NUR ---
Significant Event: A/O X 3, UP AD NANDO IN ROOM. SBP'S REMAIN HIGH IN 170'S BUT NOT HIGH ENOUGH FOR PRN HYDRALAZINE. TRACIE SUPREP BOWEL CLENSE FOR EGD/COLONSCOPY THIS AM. NPO SINCE 399. FINIGHED ALL BOWEL PREP. COOPERATIVE WITH NO COMPLAINTS OF PAIN. Follow up:
--- NOTE | 2016-10-19 16:45 | NUR ---
Significant Event: Alert and oriented X 3. Room Air. Hydrolazine given at 1404 for BP 216/93. BP at 1638 169/78. EGD and Colonoscopy this shift. Diverticulitis and esophagitis found. Diet as tolerated. Normal Saline infusing at 70 ml/hr. can be dc'd when tolerating fluids well. Peripheral IV to right forearm. Abdomen round and non-tender. Ad Mary. Daughter at bedside. Pleasant and cooperative with cares. Follow up:
[2016-10-20 03:36] LABS: BASOPHIL % 0.8 %; EOSINOPHIL # 0.1 K/uL (0.0-0.5); HEMATOCRIT 36.3 % (33.0-46.0); HEMOGLOBIN 12.4 g/dL (10.0-15.0); IMMATURE GRANULOCYTE % 0.4 %; LYMPHOCYTE # 0.6 K/uL (0.8-4.0); MCH 30.7 pg (27.0-34.0); MCHC 34.2 gm/dL (32.0-36.5); MCV 89.9 fl (83.0-98.0); MONOCYTE # 0.4 K/uL (0.0-1.0); MONOCYTE % 6.9 %; MPV 10.9 fl (9.4-12.4); NEUTROPHIL # (ANC) 4.2 K/uL (1.8-7.8); NEUTROPHIL % 79.9 %; NRBC % 0 /100WBC (0-0.00); PLATELET COUNT 160 K/uL (150-450); RBC 4.04 M/uL (3.50-5.50); RDW-CV 12.7 % (11.9-14.6); WBC 5.2 K/uL (4.0-11.0)
[2016-10-20 03:59] LABS: ALBUMIN 3.5 gm/dL (3.5-5.0); ALK PHOS 204 IU/L (33-138); AST 281 IU/L (10-40); TOTAL PROTEIN 6.4 g/dL (6.0-8.4)
[2016-10-20 04:04] LABS: ALT 460 IU/L (12-78)
--- NOTE | 2016-10-20 05:14 | NUR ---
A/O. VSS. ROOM AIR. AFEBRILE. C/O GAS BLOATING. ULTRAM AND GASX GIVEN. THEN TUMS AND ZOFRAN GIVEN WITH RELIEF NOTED. UP AD NANDO IN ROOM/HALLS. PLAN FOR DISCHARGE TODAY.
--- NOTE | 2016-10-20 10:34 | NUR ---
PT SCREENED D/T LOS. EST NEEDS: 3128-0416 KCALS, 88-105 GM PROTEIN, 1 ML/KCAL FLUIDS. PT TOLERATES PO W/O DIFFICULTY. PER DISHCARGE ROUNDING TO DISMISS TOMORROW. WILL MONITOR ROUTINELY IF NEEDED.
--- NOTE | 2016-10-20 17:20 | NUR ---
Significant Event: GOOD DAY, SAYS SHE FEELS BETTER TODAY THAN TODAY. UP AND WALKS IN THE [place] THIS AFTERNOON. DENIES NEEDS OR PAIN. Follow up: HOME IN AM?
[2016-10-21 03:53] LABS: ALBUMIN 3.6 gm/dL (3.5-5.0); TOTAL PROTEIN 6.6 g/dL (6.0-8.4)
[2016-10-21 03:56] LABS: TOTAL BILIRUBIN 4.6 mg/dL (0.0-1.5)
--- NOTE | 2016-10-21 04:23 | NUR ---
A/O. VSS. ROOM AIR. AFEBRILE. DENIES PAIN. IV ABX. UP AD NANDO IN ROOM AND HALLS. DISMISSAL TO HOME TODAY.
[2016-10-21] MEDS ORDERED: ULTRAM50 MG PO (09:47)
[2016-10-21] MEDS ORDERED: FLAGYL500 M1 PO (09:49)
[2016-10-21] MEDS ORDERED: CIPRO500 MG PO (09:50)
== END 2016-10-21 12:20 | disposition disaster alternative care site (69) | DRG 392 ==
LOC: GMED 14:26 → GPCU 18:53
PROVIDERS: Emergency Medicine; Internal Medicine; Internal Medicine Gastroenterology; ADMIT Family Medicine
DX: K57.32 Diverticulitis of large intestine without perforation or abscess without bleeding (principal); R00.1 Bradycardia, unspecified; I16.0 Hypertensive urgency; R07.9 Chest pain, unspecified; Z82.49 Family history of ischemic heart disease and other diseases of the circulatory system; F17.220 Nicotine dependence, chewing tobacco, uncomplicated; D12.5 Benign neoplasm of sigmoid colon; K59.00 Constipation, unspecified; R74.8 Abnormal levels of other serum enzymes
CPT/HCPCS: C9113; J0360; J0744; J1200; J1644; J1885; J2405; J7030; Q9967

== ENCOUNTER → 2016-10-24 | Outpatient (CLI) | payer OTHER ==
[~2016-10-24] MED LIST: CIPRO500 MG PO; COLACE100 MG PO; FLAGYL500 M1 PO; NORVASC2.5 MG PO; ULTRAM50 MG PO; VASOTEC10 MG PO
[2016-10-24 12:15] LABS: ALK PHOS 185 IU/L (33-138); ANION GAP 13.1 (10.0-19.0); AST 182 IU/L (10-40); BLOOD UREA NITROGEN 12 mg/dL (6-24); CALCIUM 8.8 mg/dL (8.5-10.5); CHLORIDE 110 mMol/L (96-110); CO2 25 mMol/L (22-32); CREATININE 0.8 mg/dL (0.5-1.1); ESTIMATED GFR (MDRD EQUATION) > 60; POTASSIUM 4.1 mMol/L (3.7-5.1); SODIUM 144 mMol/L (135-145)
[2016-10-24 12:16] LABS: ALT 513 IU/L (12-78); TOTAL BILIRUBIN 1.5 mg/dL (0.0-1.5)
== END | disposition disaster alternative care site (69) ==
LOC: GLAB 11:30
PROVIDERS: Family Medicine
DX: K57.32 Diverticulitis of large intestine without perforation or abscess without bleeding (principal); R74.8 Abnormal levels of other serum enzymes